=== PATIENT | female | born 1955 | race Caucasian/White ===

== ENCOUNTER 2016-04-30 10:34 | Emergency (ER) | payer SELFPAY ==
[2016-04-30 10:39] VITALS: BP 139/73
--- NOTE | 2016-04-30 10:55 | ER Document Report ---
ED Medical Screen (RME) - General Stated Complaint: FEVER,COUGH Time seen by provider: 10:51 Notes: Patient complains of cough, fever, nasal congestion, sore throat for 2 days. Complains of pain to her upper back but coughing. Denies chest pain or shortness of breath. No nausea, vomiting, diarrhea. Denies past medical history except for bronchitis. I have greeted and performed a rapid initial assessment of this patient. A comprehensive ED assessment and evaluation of the patient, analysis of test results and completion of the medical decision making process will be conducted by additional ED providers. - Related Data Allergies/Adverse Reactions: No Known Allergies Allergy (Unverified 04/30/16 10:52) Physical Exam - Vital signs Vitals: Temp Pulse Resp BP Pulse Ox 98.3 F 81 16 139/73 H 97 04/30/16 10:38 04/30/16 10:38 04/30/16 10:38 04/30/16 10:38 04/30/16 10:38 - Respiratory Notes: Lungs clear to auscultation, no respiratory distress noted. Course - Vital Signs Vital signs: Temp Pulse Resp BP Pulse Ox 98.3 F 81 16 139/73 H 97 04/30/16 10:38 04/30/16 10:38 04/30/16 10:38 04/30/16 10:38 04/30/16 10:38
--- NOTE | 2016-04-30 12:17 | ER Document Report ---
HPI - HPI Patient complains to provider of: cough sore throat fever Onset: Other - 2 dats Onset/Duration: Persistent Quality of pain: Achy Severity: Severe Pain Level: 4 Context: Patient presents emergency department with complaints of coughing for the past 2 days. She also reports fever sore throat back pain. Denies vomiting diarrhea. Denies past history of COPD bronchitis. Patient does smoke approximately 2 cigarettes per day. Associated Symptoms: Nonproductive cough, Sore throat Exacerbated by: Denies Relieved by: Denies Similar symptoms previously: No Recently seen / treated by doctor: No - CARDIOVASCULAR Cardiovascular: DENIES: Chest pain - DERM Skin Color: Normal Past Medical History - General Information source: Patient Last Menstrual Period: years , menopause - Social History Smoking Status: Current Every Day Smoker Cigarette use (# per day): Yes - 2cpd Chew tobacco use (# tins/day): No Smoking Education Provided: Yes Frequency of alcohol use: None Drug Abuse: None Occupation: [employer] Lives with: Family Family History: None Patient has suicidal ideation: No Patient has homicidal ideation: No - Medical History Medical History: Negative Renal/ Medical History: Denies: Hx Peritoneal Dialysis Past Surgical History: Reports: Hx Appendectomy, Hx Orthopedic Surgery Vertical Provider Document - CONSTITUTIONAL Agree With Documented VS: Yes Exam Limitations: No Limitations General Appearance: WD/WN, No Apparent Distress - nontoxic looking - INFECTION CONTROL TRAVEL OUTSIDE OF THE [place] IN LAST 30 DAYS: No - HEENT HEENT: Atraumatic, Normal ENT Exam, Normocephalic, PERRLA. negative: Conjuctival Injection, Pharyngeal Exudate, Pharyngeal Tenderness, Pharyngeal Erythema - No peritonsillar abscess good clear voice no trismus, Tympanic Membrane Red, Tympanic Membrane Bulging - NECK Neck: Normal Inspection, Supple. negative: Lymphadenopathy-Left, Lymphadenopathy-Right - RESPIRATORY Respiratory: Breath Sounds Normal, No Respiratory Distress - No cough noted during the entire assessment and interview. negative: Rhonchi, Wheezing O2 Sat by Pulse Oximetry: 97 - CARDIOVASCULAR Cardiovascular: Regular Rate, Regular Rhythm - GI/ABDOMEN Gastrointestinal: Abdomen Soft, Abdomen Non-Tender - BACK Back: Normal Inspection - MUSCULOSKELETAL/EXTREMETIES Musculoskeletal/Extremeties: MAEW, FROM - NEURO Level of Consciousness: Awake, Alert, Appropriate Motor/Sensory: No Motor Deficit - DERM Integumentary: Warm, Dry Course - Re-evaluation Re-evalutation: 04/30/16 Patient instructed on the importance of quit smoking. She was instructed on [id number] cough medicine. She was also instructed to push fluids monitor cough monitor for fever and return to the emergency department for concerns or trouble breathing. She verbalized understanding. - Vital Signs Vital signs: Temp Pulse Resp BP Pulse Ox 98.3 F 81 18 139/73 H 97 04/30/16 10:38 04/30/16 10:38 04/30/16 11:30 04/30/16 10:38 04/30/16 10:38 - Diagnostic Test Radiology reviewed: Image reviewed, Reports reviewed - IMPRESSION: NO SIGNIFICANT RADIOGRAPHIC FINDING IN THE CHEST. Discharge - Discharge Clinical Impression: Cough, Elevated blood pressure reading, Sore throat Condition: Stable Disposition: HOME, SELF-CARE Instructions: Acetaminophen Additional Instructions: *You have been evaluated for cold symptoms today, cough, sore throat *Increase fluid intake as discussed *Take over the counter cough medication as indicated *Quit smoking *Monitor your temperature, take Tylenol as indicated *Follow up with a primary care provider within one week for recheck *Return to ED for worsening condition, changes, needs Monitor your blood pressure. Your blood pressure was elevated today. This may be because you were anxious, in pain or because you need medication. It is important to follow up with your primary care provider for full evaluation. Forms: Elevated Blood Pressure, Smoking Cessation Education
== END 2016-04-30 12:24 | disposition home or self-care (01) ==
LOC: ER 10:34
DX: J02.9 Acute pharyngitis, unspecified (principal); R03.0 Elevated blood-pressure reading, without diagnosis of hypertension; R50.9 Fever, unspecified; R05 Cough; F17.210 Nicotine dependence, cigarettes, uncomplicated
CPT/HCPCS: 71020; 99283

== ENCOUNTER 2017-06-22 11:07 | Emergency (ER) | payer SELFPAY ==
[2017-06-22] MEDS ORDERED: ALBUTEROL SULFATE 0.083% NEB 2.5 MG/3 ML AMPUL NEB ONE (11:30)
--- NOTE | 2017-06-22 11:30 | ER Document Report ---
HPI - HPI Patient complains to provider of: congestion, cough Onset: Other - tuesday Onset/Duration: Gradual Pain Level: Denies Context: 61 yo female with cough, congestion, sore throat, runny nose since tuesday. No chest pain or sob. No abd. pain. No fever or chills. Associated Symptoms: None Exacerbated by: Denies Relieved by: Denies Similar symptoms previously: No Recently seen / treated by doctor: No - ROS ROS below otherwise negative: Yes Systems Reviewed and Negative: Yes All other systems reviewed and negative - CONSTITUTIONAL Constitutional: REPORTS: Chills - intermittently. DENIES: Fever - EENT EENT: REPORTS: Sore Throat - RESPIRATORY Respiratory: REPORTS: Coughing - GASTROINTESTINAL Gastrointestinal: DENIES: Abdominal Pain Past Medical History - General Information source: Patient - Social History Smoking Status: Current Every Day Smoker Frequency of alcohol use: None Drug Abuse: None Family History: None Patient has suicidal ideation: No Patient has homicidal ideation: No - Medical History Medical History: Negative Renal/ Medical History: Denies: Hx Peritoneal Dialysis Past Surgical History: Reports: Hx Appendectomy, Hx Orthopedic Surgery Vertical Provider Document - CONSTITUTIONAL Agree With Documented VS: Yes Exam Limitations: No Limitations General Appearance: No Apparent Distress - INFECTION CONTROL TRAVEL OUTSIDE OF THE [place] IN LAST 30 DAYS: No - HEENT HEENT: Normocephalic, Pharyngeal Erythema. negative: Conjuctival Injection, Tympanic Membrane Red Notes: 2 forhead lesions, that are suspisious, one with irregular borders and different dark colors the other adjacent is flesh colored and looks like a mole. Discussed that she needs to have a poured pipe maker look at them. - NECK Neck: Supple. negative: Lymphadenopathy-Left, Lymphadenopathy-Right - RESPIRATORY Respiratory: Breath Sounds Normal, No Respiratory Distress - CARDIOVASCULAR Cardiovascular: Regular Rate, Regular Rhythm - GI/ABDOMEN Gastrointestinal: Abdomen Soft, Abdomen Non-Tender, No Organomegaly - MUSCULOSKELETAL/EXTREMETIES Musculoskeletal/Extremeties: SIDDHARTH LUNA - NEURO Level of Consciousness: Awake, Alert - DERM Integumentary: No Rash Course - Re-evaluation Re-evalutation: 06/22/17 12:19 Patient feels better after the nebulizer I will give her a prescription for metered-dose inhaler. Her chest x-ray is negative. I also advised that she should see a poured pipe maker about the 2 lesions on her forehead. - Vital Signs Vital signs: Temp Pulse Resp BP Pulse Ox 98.3 F 81 18 151/89 H 98 06/22/17 11:12 06/22/17 11:12 06/22/17 11:12 06/22/17 11:12 06/22/17 11:12 Discharge - Discharge Clinical Impression: Upper respiratory infection, Facial lesions Condition: Good Disposition: HOME, SELF-CARE Instructions: Family Physicians / Practices, Inhaled Bronchodilators ([facility]), Stop Smoking ([facility]), Upper Respiratory Illness ([facility]) Additional Instructions: Stop smoking Tylenol Motrin Use the albuterol metered-dose inhaler for cough Plenty of fluids Return to the emergency room if worse See the poured pipe maker for the 2 forehead lesions. Prescriptions: Albuterol Sulfate [Proair HFA Inhalation Aerosol 8.5 gm MDI] 2 puff IH Q3HP PRN #1 [email or web address] PRN Reason: Referrals: MELODY KEITA DO [ACTIVE STAFF] - Follow up as needed
--- NOTE | 2017-06-22 12:08 | RADIOLOGY REPORT (SQ) ---
EXAM DESCRIPTION: CHEST 2 VIEWS COMPLETED DATE/TIME: 06/22/2017 11:54 am REASON FOR STUDY: cough, smoker COMPARISON: Two-view chest 04/30/2016 EXAM PARAMETERS: NUMBER OF VIEWS: two views TECHNIQUE: Digital Frontal and Lateral radiographic views of the chest acquired. RADIATION DOSE: NA LIMITATIONS: none FINDINGS: LUNGS AND PLEURA: No opacities, masses or pneumothorax. No pleural effusion. MEDIASTINUM AND HILAR STRUCTURES: No masses or contour abnormalities. HEART AND VASCULAR STRUCTURES: Heart normal size. No evidence for failure. BONES: No acute findings. HARDWARE: None in the chest. OTHER: No other significant finding. IMPRESSION: NO ACUTE RADIOGRAPHIC FINDING IN THE CHEST. TECHNICAL DOCUMENTATION: JOB ID: [id number] [employer]- All Rights Reserved Reading location - IP/workstation name: [email or web address]
[2017-06-22 12:30] VITALS: BP 128/79
== END 2017-06-22 12:37 | disposition home or self-care (01) ==
LOC: ER 11:07
DX: J06.9 Acute upper respiratory infection, unspecified (principal); L98.9 Disorder of the skin and subcutaneous tissue, unspecified; R09.81 Nasal congestion; R05 Cough; J02.9 Acute pharyngitis, unspecified; R09.89 Other specified symptoms and signs involving the circulatory and respiratory systems; F17.200 Nicotine dependence, unspecified, uncomplicated
CPT/HCPCS: 71046; 87070; 87880; 94640; 99283

== ENCOUNTER 2017-08-01 17:38 | Emergency (ER) | payer SELFPAY ==
[2017-08-01 17:44] VITALS: BP 150/78
--- NOTE | 2017-08-01 17:52 | ER Document Report ---
HPI - HPI Pain Level: 3 Notes: Patient is a 61-year-old female who presents to the ED complaining of left elbow pain and bruising 4 days status post injury. Patient states that she was out walking her dog when she fell and landed on her elbow. Patient states that the pain will occasionally radiate down into her forearm, but she is still able to use her elbow when I difficulties otherwise. She denies any drug allergies. Denies any head injury or loss of consciousness. Denies any headache, fever, head injury, neck pain, changes in vision/speech/mentation/ hearing, URI, sore throat, chest pain, palpitations, syncope, cough, shortness of breath, wheeze, dyspnea, abdominal pain, nausea/vomiting/diarrhea, urinary retention, dysuria, hematuria, numbness/tingling, muscle paralysis/weakness, or rash. - ROS Systems Reviewed and Negative: Yes All other systems reviewed and negative Past Medical History - Social History Smoking Status: Current Every Day Smoker Family History: None Renal/ Medical History: Denies: Hx Peritoneal Dialysis Past Surgical History: Reports: Hx Appendectomy, Hx Orthopedic Surgery Vertical Provider Document - CONSTITUTIONAL Agree With Documented VS: Yes Notes: PHYSICAL EXAMINATION: GENERAL: Well-appearing, well-nourished and in no acute distress. HEAD: Atraumatic, normocephalic. EYES: Pupils equal round and reactive to light, extraocular movements intact, sclera anicteric, conjunctiva are normal. NECK: Normal range of motion, supple without lymphadenopathy LUNGS: Breath sounds clear to auscultation bilaterally and equal. No wheezes rales or rhonchi. HEART: Regular rate and rhythm without murmurs, rubs, gallops. Musculoskeletal: Left elbow: + ecchymosis and mild swelling to the lateral elbow. FROM to passive/active. Strength 5+/5. n/v intact distal. + tenderness to palp to the lateral elbow. Muscle tone intact. Extremities: No cyanosis, clubbing, or edema b/l. Peripheral pulses 2+. Capillary refill less than 3 seconds. NEUROLOGICAL: Normal speech, normal gait. Normal sensory, motor exams PSYCH: Normal mood, normal affect. SKIN: Warm, Dry, normal turgor, no rashes or lesions noted. - INFECTION CONTROL TRAVEL OUTSIDE OF THE [place] IN LAST 30 DAYS: No Course - Re-evaluation Re-evalutation: 08/01/17 18:45 Patient is an afebrile, well-hydrated, 61-year-old female who presents to the ED with left radial head fracture. Vitals are acceptable. PE is otherwise unremarkable for any neurovascular compromise, obvious tendon/ligament rupture, obvious dislocation, open fracture, septic joint. See XR result. She has not had any significant tachycardia, tachypnea, or hypoxia. She is nontoxic- appearing. Sugar tong and sling given. Patient declined any Tylenol/Motrin. Conservative measures for symptoms. Recheck with your PCM in 3-5 days. Call ortho to schedule an appointment. Return to the ED with any worsening/ concerning symptoms otherwise as reviewed in discharge. Patient is in agreement. - Vital Signs Vital signs: Temp Pulse Resp BP Pulse Ox 98.5 F 72 20 150/78 H 98 08/01/17 17:42 08/01/17 17:42 08/01/17 17:42 08/01/17 17:42 08/01/17 17:42 Procedures - Immobilization Left Elbow Time completed: 18:45 Pre-Proc Neuro Vasc Exam: Normal Immobilizer type: Sugar tong Performed by: PCT Post-Proc Neuro Vasc Exam: Normal, Unchanged from pre-exam Discharge - Discharge Clinical Impression: Left radial head fracture Qualifiers: Encounter type: initial encounter Fracture type: closed Fracture alignment: nondisplaced Qualified Code(s): S52.125A - Nondisplaced fracture of head of left radius, initial encounter for closed fracture Condition: Stable Disposition: HOME, SELF-CARE Instructions: Radial Head Fracture ([facility]), Splint Precautions ([facility]) Additional Instructions: Rest, Ice, Compression, Elevation Tylenol/ibuprofen as needed Light stretches daily Strength exercises as able Moist heat and massage may help F/u with your PCP in 3-5 days for a recheck Call orthopedics tomorrow to schedule an appointment for further evaluation and management Return to the ED with any worsening symptoms and/or development of fever, headache, chest pain, palpitations, syncope, shortness of breath, trouble breathing, abdominal pain, n/v/d, muscle weakness/paralysis, numbness/tingling, swelling, redness, or other worsening symptoms that are concerning to you. Forms: Elevated Blood Pressure, Smoking Cessation Education, Return to Work Referrals: [facility] [Provider Group] - Follow up as needed
--- NOTE | 2017-08-01 18:20 | RADIOLOGY REPORT (SQ) ---
EXAM DESCRIPTION: ELBOW LEFT OVER 2 VIEWS COMPLETED DATE/TIME: 08/01/2017 6:05 pm REASON FOR STUDY: left elbow pain s/p injury COMPARISON: None. NUMBER OF VIEWS: Four views. TECHNIQUE: AP, lateral, and both oblique radiographic images acquired of the left elbow. LIMITATIONS: None. FINDINGS: MINERALIZATION: Normal. BONES: There is a fracture of the radial head. JOINT: No effusion. SOFT TISSUES: No soft tissue swelling. No foreign body. OTHER: No other significant finding. IMPRESSION: Radial head fracture. TECHNICAL DOCUMENTATION: JOB ID: [id number] [employer]- All Rights Reserved Reading location - IP/workstation name: [email or web address]
[2017-08-01] MEDS ORDERED: HYDROCODONE/ACETAMINOPHEN 5-325 MG (6 TAB/ER DISP) PO PRN (18:31)
== END 2017-08-01 18:47 | disposition home or self-care (01) ==
LOC: ER 17:38
PROC: 2W39X1Z Immobilization of Left Upper Extremity using Splint (ICD-10-PCS; principal; 2017-08-01)
DX: S52.125A Nondisplaced fracture of head of left radius, initial encounter for closed fracture (principal); M25.522 Pain in left elbow; M79.632 Pain in left forearm; W19.XXXA Unspecified fall, initial encounter; Y93.K1 Activity, walking an animal; F17.200 Nicotine dependence, unspecified, uncomplicated
CPT/HCPCS: 99283

== ENCOUNTER 2019-06-15 04:03 | Emergency (ER) | payer SELFPAY ==
--- NOTE | 2019-06-15 04:48 | ER Document Report ---
ED General - General Chief Complaint: Abdominal Pain Stated Complaint: ABOMINAL PAIN Time Seen by Provider: 06/15/19 04:34 Notes: Generally healthy 63-year-old female presents the emergency department chief complaint of abdominal pain since this morning. Patient states that she had not had a bowel movement in 3 days and then had a normal 1 at 11 PM last night. Patient states she then had a sharp stabbing pain that radiated across her abdo men that was intermittent. She said it is subsided. She said it was in her lower abdomen. Patient denies any fevers or chills, denies any nausea or vomiting, denies any urinary symptoms, last menstrual period 10 years ago. Patient had an appendectomy at the age of 19 but no other abdominal surgeries. No other complaints TRAVEL OUTSIDE OF THE [place] IN LAST 30 DAYS: No - Related Data Allergies/Adverse Reactions: No Known Allergies Allergy (Verified 06/15/19 04:10) Past Medical History - Social History Smoking Status: Current Every Day Smoker Family History: None Patient has suicidal ideation: No Patient has homicidal ideation: No Renal/ Medical History: Denies: Hx Peritoneal Dialysis Past Surgical History: Reports: Hx Appendectomy, Hx Orthopedic Surgery Review of Systems - Review of Systems Constitutional: See HPI EENT: No symptoms reported Cardiovascular: No symptoms reported Respiratory: No symptoms reported Gastrointestinal: See HPI Genitourinary: See HPI Female Genitourinary: No symptoms reported Musculoskeletal: No symptoms reported Skin: No symptoms reported Hematologic/Lymphatic: No symptoms reported Neurological/Psychological: No symptoms reported Physical Exam - Vital signs Vitals: Temp Pulse Resp BP Pulse Ox 97.8 F 83 14 140/72 H 96 06/15/19 04:07 06/15/19 04:07 06/15/19 04:07 06/15/19 04:07 06/15/19 04:07 - Notes Notes: PHYSICAL EXAMINATION: Reviewed vital signs and charting by RN GENERAL: Alert, interacts well. No acute distress. HEAD: Normocephalic, atraumatic. EYES: Pupils equal and round. Extraocular movements intact. ENT: Oral mucosa moist, tongue midline. NECK: Full range of motion. Trachea midline. LUNGS: Clear to auscultation bilaterally, no wheezes, rales, or rhonchi. No respiratory distress. HEART: Regular rate and rhythm. No murmur ABDOMEN: soft, mild tenderness to palpation in the lower abdomen slightly worse in the right. No distention. Bowel sounds present EXTREMITIES: Moves all 4 extremities spontaneously. No edema, No cyanosis. PSYCH: Normal affect, normal mood. SKIN: Warm, dry, normal turgor. No rashes or lesions noted. Course - Re-evaluation Re-evalutation: 06/15/19 04:47 Well-appearing in no acute distress. Vital signs within normal limits. Afebrile. Plan is to get some basic lab work and to get a KUB. My differential includes constipation versus gas versus diverticulosis/diverticulitis. I have low suspicion for complaint. 06/15/19 06:35 Patient KUB showed a mildly distended colon with gas without any evidence of obstruction. Lab work all within normal limits. Urinalysis did have small leuk esterase and 7 WBCs. Based on clinical exam and symptomology I am going to go ahead and treat her with Keflex 500 mg twice daily for 7 days. Patient has been given strict return precautions and is stable for discharge. - Vital Signs Vital signs: Temp Pulse Resp BP Pulse Ox 97.8 F 83 14 140/72 H 96 06/15/19 04:10 06/15/19 04:07 06/15/19 04:07 06/15/19 04:07 06/15/19 04:07 - Laboratory Result Diagrams: 06/15/19 05:07 06/15/19 05:07 Laboratory results interpreted by me: 06/15/19 06/15/19 05:07 06:05 Sodium 136.3 L Glucose 113 H Urine Blood SMALL H Ur Leukocyte Esterase SMALL H Discharge - Discharge Clinical Impression: Lower abdominal pain Urinary tract infection Qualifiers: Urinary tract infection type: acute cystitis Hematuria presence: with hematuria Qualified Code(s): N30.01 - Acute cystitis with hematuria Condition: Good Disposition: HOME, SELF-CARE Additional Instructions: Your urine shows findings consistent with a urinary tract infection. Please take all the antibiotics as directed even if your symptoms have improved. Please follow-up with your primary care physician as needed. Return to emergen cy room if you develop fever >101F, persistent vomiting, become lethargic, have severe pain in your sides, or any other symptoms that are concerning to you. Prescriptions: Cephalexin Monohydrate [Keflex 500 mg Capsule] 500 mg PO Q12H #14 capsule
[2019-06-15 05:19] LABS: ABSOLUTE EOSINOPHILS # (AUTO) 0.2 10^3/uL (0.0-0.6); ABSOLUTE MONOCYTES (AUTO) 0.6 10^3/uL (0.1-1.4); ABSOLUTE NEUT (AUTO) 3.6 10^3/uL (1.7-8.2); BASOPHILS % (AUTO) 0.7 % (0-2); EOSINOPHILS % (AUTO) 3.7 % (0-6); HEMATOCRIT 41.8 % (36.0-47.0); HEMOGLOBIN 14.7 g/dL (12.0-15.5); LYMPHOCYTES % (AUTO) 30.2 % (13-45); MEAN CORPUSCULAR HGB CONC 35.2 g/dL (32.0-36.0); MEAN CORPUSCULAR VOLUME 91 fl (80-97); MONOCYTES % (AUTO) 9.7 % (3-13); PLATELET COUNT 265 10^3/uL (150-450); RED BLOOD COUNT 4.59 10^6/uL (3.72-5.28); RED CELL DISTRIBUTION WIDTH 12.7 % (11.5-14.0); SEGMENTED NEUTROPHILS % (AUTO) 55.7 % (42-78); TOTAL CELLS COUNTED % (AUTO) 100 %; WHITE BLOOD COUNT 6.5 10^3/uL (4.0-10.5)
[2019-06-15 05:38] LABS: ALBUMIN 4.1 g/dL (3.5-5.0); ALKALINE PHOSPHATASE 65 U/L (38-126); ANION GAP 5 (5-19); ASPARTATE AMINO TRANSFERASE 29 U/L (14-36); BILIRUBIN,TOTAL 0.4 mg/dL (0.2-1.3); BLOOD UREA NITROGEN 18 mg/dL (7-20); CALCIUM 9.3 mg/dL (8.4-10.2); CARBON DIOXIDE 26 mmol/L (22-30); CHLORIDE 105 mmol/L (98-107); GLUCOSE 113 mg/dL (75-110); POTASSIUM 4.3 mmol/L (3.6-5.0)
--- NOTE | 2019-06-15 05:40 | RADIOLOGY REPORT (SQ) ---
EXAM DESCRIPTION: XR ABDOMEN 1 VIEW (KUB) COMPLETED DATE/TME: 06/15/2019 04:44 CLINICAL HISTORY: 63 years, Female, abd pain COMPARISON: None. NUMBER OF VIEWS: One TECHNIQUE: AP view the abdomen LIMITATIONS: None. FINDINGS: No dilated loops of small bowel are identified. There is mild gaseous distention of the colon. There are no abnormal calcifications. The bones are unremarkable. IMPRESSION: Nonobstructing bowel gas pattern copyright 2010 [employer]- All Rights Reserved
[2019-06-15 06:20] LABS: APPEARANCE,URINE CLEAR; BILIRUBIN,URINE NEGATIVE (NEGATIVE); COLOR,URINE STRAW; GLUCOSE, URINE NEGATIVE (NEGATIVE); KETONES,URINE NEGATIVE (NEGATIVE); LEUKOCYTE ESTERASE,URINE SMALL (NEGATIVE); NITRITE,URINE NEGATIVE (NEGATIVE); PROTEIN,URINE NEGATIVE (NEGATIVE); URINE SPECIFIC GRAVITY 1.009; UROBILINOGEN,URINE NEGATIVE mg/dL (<2.0)
[2019-06-15] MEDS ORDERED: CEPHALEXIN 500 MG CAPSULE PO ONE (06:36)
[2019-06-15 06:48] VITALS: BP 146/65
== END 2019-06-15 06:53 | disposition home or self-care (01) ==
LOC: ER 04:03
DX: N30.01 Acute cystitis with hematuria (principal); R10.30 Lower abdominal pain, unspecified; K59.00 Constipation, unspecified; F17.200 Nicotine dependence, unspecified, uncomplicated
CPT/HCPCS: 36415; 74018; 80053; 81001; 85025; 99284